=== PATIENT | male | born 1995 | race Hispanic/Latino ===

== ENCOUNTER → 2024-08-24 | Outpatient (REF) | payer OTHER | LOC: RAD 10:23 | PROVIDERS: ATTEND Internal Medicine Critical Care Medicine | DX: R06.00 Dyspnea, unspecified (principal) | CPT/HCPCS: 71046 ==

== ENCOUNTER → 2025-01-25 | Outpatient (REF) | payer OTHER | LOC: RAD 10:48 | PROVIDERS: ATTEND Internal Medicine Critical Care Medicine | DX: R06.00 Dyspnea, unspecified (principal) | CPT/HCPCS: 71046 ==